=== PATIENT | female | born 1995 | race Caucasian/White ===

== ENCOUNTER 2018-03-06 01:06 | Emergency (ER) | payer BC ==
[2018-03-06 01:12] VITALS: BP 120/69
--- NOTE | 2018-03-06 01:15 | EDPHY ---
H & P Stated Complaint: NEED EARRING REMOVED Time Seen by Provider: 03/06/18 01:15 HPI/ROS: HPI CHIEF COMPLAINT: Earring stuck in ear HISTORY OF PRESENT ILLNESS: 22-year-old female, she is otherwise healthy with no significant medical history she has a croup type tearing in her left ear. She has been trying to get it out for the past hour however unable to do so. She now complains of some pain and redness and swelling to the left ear. The earring is located on the pinna mid region. Past Medical History: Denies medical history Past Surgical History: Denies surgical history Social History: Denies drugs alcohol tobacco. Family History: Noncontributory ROS REVIEW OF SYSTEMS: A comprehensive 10 point review of systems is otherwise negative aside from elements mentioned in the history of present illness. Exam Constitutional triage nursing summary reviewed, vital signs reviewed, awake/ alert. Eyes normal conjunctivae and sclera, EOMI, PERRLA. HENT left ear: Mid region, Pinna, there is a hoop like earring with some mild erythema and swelling around it, minimal tenderness, no gas. normal inspection , atraumatic, moist mucus membranes, no epistaxis, neck supple/ no meningismus, no raccoon eyes. Respiratory clear to auscultation bilaterally, normal breath sounds, no respiratory distress, no wheezing. Cardiovascular rate normal, regular rhythm, no murmur, no edema, distal pulses normal. Gastrointestinal soft, non-tender, no rebound, no guarding, normal bowel sounds, no distension, no pulsatile mass. Genitourinary no CVA tenderness. Musculoskeletal no midline vertebral tenderness, full range of motion, no calf swelling, no tenderness of extremities, no meningismus, good pulses, neurovascularly intact. Skin pink, warm, & dry, no rash, skin atraumatic. Neurologic awake, alert and oriented x 3, AAOx3, moves all 4 extremities equally, motor intact, sensory intact, CN II-XII intact, normal cerebellar, normal vision, normal speech. Psychiatric normal mood/affect. Heme/Lymph/Immune no lymphadenopathy. Differential Diagnosis: Includes but is not limited to in a particular order retained foreign body, hearing irritation of the ear, early infection Medical Decision Making: Plan for this patient remove the earring, will place on Keflex, and warm compresses. Recommend watching the site closely if it has worsening signs of infection including swelling, pain, drainage, redness should return emergency room she understands. Earring was removed out of the ear. No complications. Recommend warm compresses watch for further signs infection Keflex as prescribed. Return if worsening symptoms questions or concerns. Source: Patient - Personal History Current Tetanus/Diphtheria Vaccine: Yes Current Tetanus Diphtheria and Acellular Pertussis (TDAP): Yes - Medical/Surgical History Hx Asthma: No Hx Chronic Respiratory Disease: No Hx Diabetes: No Hx Cardiac Disease: No Hx Renal Disease: No Hx Cirrhosis: No Hx Alcoholism: No Hx HIV/AIDS: No Hx Splenectomy or Spleen Trauma: No - Social History Smoking Status: Never smoked Constitutional: Initial Vital Signs Temperature (C) 36.7 C 03/06/18 01:10 Heart Rate 53 L 03/06/18 01:10 Respiratory Rate 18 03/06/18 01:10 Blood Pressure 120/69 03/06/18 01:10 O2 Sat (%) 98 03/06/18 01:10 O2 Delivery Mode Room Air Allergies/Adverse Reactions: No Known Allergies Allergy (Unverified 03/06/18 01:10) Home Medications: Medication Instructions Recorded NK [No Known Home Meds] 03/06/18 Departure - Departure Disposition: Home, Routine, Self-Care Clinical Impression: Cellulitis of ear Qualifiers: Laterality: left Qualified Code(s): H60.12 - Cellulitis of left external ear Condition: Good Instructions: Cellulitis (ED) Additional Instructions: 1. Antibiotics as prescribed. 2. Return emergency room if you have worsening pain, redness, swelling questions or concerns. 3. Would recommend you do warm compresses 2 to 3 times a day for 20 min and take antibiotics as prescribed.
== END 2018-03-06 02:50 | disposition home or self-care (01) ==
DX: H60.12 Cellulitis of left external ear (principal)